=== PATIENT | male | born 1985 | race Caucasian/White ===

== ENCOUNTER 2018-02-20 15:07 | Emergency (ER) | payer OTHER ==
[~2018-02-20] VITALS: Ht 180.3 cm; Wt 113.6 kg
[~2018-02-20 15:07] MED LIST: CYCL-1 PO
[2018-02-20] MEDS ORDERED: ondansetron 4mg rapidly disintigrating tab PO ONE (15:25)
[2018-02-20] MEDS ORDERED: HYDROcodone/acetaminophen 10/325mg tab PO ONE (15:25)
[2018-02-20] MEDS ORDERED: LIDOcaine 1% 30ml preserv. free vial IJ ONE (15:40)
[2018-02-20] MEDS ORDERED: tetanus & diphtheria toxoid (Td) vaccine 0.5ml IMVAC ONE (17:15)
[2018-02-20] MEDS ORDERED: CEPH-572 PO (17:20)
[2018-02-20] MEDS ORDERED: HYDR-4383 PO (17:20)
[2018-02-20] MEDS ORDERED: HYDROcodone/acetaminophen 5mg/325mg tablet PO ONE (17:30)
[2018-02-20] MEDS ORDERED: TETanus/Pertussis (Acell)/Diphther VAC/PF (Tdap-Adult) 0.5ml syringe IM ONE (17:30)
== END 2018-02-20 18:26 | disposition home or self-care (01) ==
LOC: ER 15:08
DX: S61.212A Laceration without foreign body of right middle finger without damage to nail, initial encounter (principal); F12.90 Cannabis use, unspecified, uncomplicated; W23.0XXA Caught, crushed, jammed, or pinched between moving objects, initial encounter; Y93.89 Activity, other specified; Y92.69 Other specified industrial and construction area as the place of occurrence of the external cause; Y99.9 Unspecified external cause status
CPT/HCPCS: 12001; 73140; 90471; 90715; 99284; J3490

== ENCOUNTER 2018-02-23 08:57 | Emergency (ER) | payer OTHER ==
[~2018-02-23] VITALS: Ht 180.3 cm; Wt 100.0 kg
[~2018-02-23 08:57] MED LIST changes: +CEPH-572 PO; +HYDR-4383 PO
[2018-02-23 09:03] VITALS: BP 130/79
== END 2018-02-23 09:34 | disposition home or self-care (01) ==
LOC: ER 08:58
DX: S61.214D Laceration without foreign body of right ring finger without damage to nail, subsequent encounter (principal); F12.90 Cannabis use, unspecified, uncomplicated; W23.0XXD Caught, crushed, jammed, or pinched between moving objects, subsequent encounter
CPT/HCPCS: 99283

== ENCOUNTER 2020-04-30 03:53 | Emergency (ER) | payer MEDICAID, OTHER ==
[~2020-04-30] VITALS: Ht 180.3 cm; Wt 109.1 kg
[~2020-04-30 03:53] MED LIST changes: -CEPH-572 PO; -CYCL-1 PO; -HYDR-4383 PO; +LEVE250T4 PO
[2020-04-30] MEDS ORDERED: levetiracetam-NS 1000mg/100ml 100 ML IV ONE (04:15)
[2020-04-30] MEDS ORDERED: normal saline 1000ml 1,000 ML IV ONE (04:15)
[2020-04-30] MEDS ORDERED: levetiracetam inj 1,000 MG in normal saline 100ml IV soln 90 ML IV ONE (04:15)
[2020-04-30 04:28] LABS: BASOPHILS % (AUTO) 0.6 % (0-1); EOSINOPHILS # (AUTO) 0.2 X10'3 (0-0.9); EOSINOPHILS % (AUTO) 2.3 % (0-6); HEMATOCRIT 44.1 % (42.0-52.0); HEMOGLOBIN 15.1 g/dl (14.0-17.9); LYMPHOCYTES # (AUTO) 3.4 X10'3 (1.1-4.8); LYMPHOCYTES % (AUTO) 42.8 % (21-51); MEAN CORPUSCULAR HEMOGLOBIN 30.3 PG (27.0-31.0); MEAN CORPUSCULAR HGB CONC 34.2 g/dL (33.0-36.5); MEAN CORPUSCULAR VOLUME 88.5 FL (78-98); MEAN PLATELET VOLUME 7.5 FL (7.4-10.4); MONOCYTES # (AUTO) 0.5 X10'3 (0-0.9); MONOCYTES % (AUTO) 6.9 % (2-12); NEUTROPHILS # (AUTO) 3.8 X10'3 (1.8-7.7); NEUTROPHILS % (AUTO) 47.4 % (42-75); PLATELET COUNT 262 X10'3 (140-440); RED BLOOD COUNT 4.98 X10'6 (4.70-6.10); RED CELL DISTRIBUTION WIDTH 12.9 % (11.5-14.5)
[2020-04-30 04:41] LABS: ALANINE AMINOTRANSFERASE 47 U/L (12-78); ALBUMIN/GLOBULIN RATIO 1.1 (1.1-1.5); ALKALINE PHOSPHATASE 54 IU/L (46-116); ANION GAP 12 (8-16); ASPARTATE AMINO TRANSFERASE 29 U/L (10-37); BILIRUBIN,TOTAL 1.2 MG/DL (0.1-1.0); BLOOD UREA NITROGEN 11 MG/DL (7-18); BUN/CREATININE RATIO 11.6 (5.4-32.0); CHLORIDE 105 MMOL/L (99-107); CREATININE 0.95 MG/DL (0.60-1.10); ETHANOL < 0.010 GM/DL (0.0-0.010); GLUCOSE 151 MG/DL (70-104); MAGNESIUM 1.9 MG/DL (1.5-2.4); POTASSIUM 3.8 MMOL/L (3.5-5.1); SODIUM 139 MMOL/L (135-145); TOTAL CARBON DIOXIDE 22.1 MMOL/L (24-32); TOTAL PROTEIN 7.5 G/DL (6.4-8.2); eGFR > 90 ML/MIN
[2020-04-30 05:19] VITALS: BP 122/77
== END 2020-04-30 05:21 | disposition home or self-care (01) ==
LOC: ER 03:53
DX: R56.9 Unspecified convulsions (principal); F12.90 Cannabis use, unspecified, uncomplicated; F14.90 Cocaine use, unspecified, uncomplicated; Z86.69 Personal history of other diseases of the nervous system and sense organs; Z72.89 Other problems related to lifestyle; Z79.899 Other long term (current) drug therapy
CPT/HCPCS: 36415; 80053; 80320; 83735; 85025; 96365; 99284; J1953; J7030

== ENCOUNTER 2020-08-22 22:33 | Emergency (ER) | payer OTHER ==
[~2020-08-22] VITALS: Ht 172.7 cm; Wt 109.0 kg
--- NOTE | 2020-08-22 22:49 | NUR ---
drank 30 white claws. fell off [facility], unknown if LOC. c collar in place. denies any pain at this time.
--- NOTE | 2020-08-23 01:45 | NUR ---
road test, pt ambulates well. steady gait.
[2020-08-23 01:52] VITALS: BP 145/81
== END 2020-08-23 02:22 | disposition home or self-care (01) ==
LOC: ER 22:34
DX: F10.920 Alcohol use, unspecified with intoxication, uncomplicated (principal); F12.10 Cannabis abuse, uncomplicated; F14.10 Cocaine abuse, uncomplicated; W19.XXXA Unspecified fall, initial encounter; Y93.89 Activity, other specified; Y92.89 Other specified places as the place of occurrence of the external cause; Y99.8 Other external cause status; Y90.9 Presence of alcohol in blood, level not specified
CPT/HCPCS: 70450; 72125; 99285

== ENCOUNTER 2021-02-21 09:40 | Emergency (ER) | payer MEDICAID, OTHER ==
[~2021-02-21] VITALS: Ht 177.8 cm; Wt 98.0 kg
[~2021-02-21 09:40] MED LIST changes: +KEP500T PO; -LEVE250T4 PO; +MULT-25 PO; +folic acid tablet PO; +thiamine tablet PO
[2021-02-21] MEDS ORDERED: normal saline 1000ML IV soln IVB ONE (09:55)
[2021-02-21] MEDS ORDERED: levetiracetam inj 500 MG in normal saline 100ml IV soln 95 ML IV SCH (09:57)
[2021-02-21] MEDS ORDERED: LEVETIRACETAM IV SCH (10:02)
[2021-02-21] MEDS ORDERED: WATER IV SCH (10:02)
[2021-02-21] MEDS ORDERED: DEXTROSE 5% IV SCH (10:02)
[2021-02-21 10:30] LABS: RED BLOOD COUNT 5.07 X10'6 (4.70-6.10)
[2021-02-21 10:33] LABS: BASOPHILS % (AUTO) 0.2 % (0-1); EOSINOPHILS % (AUTO) 0 % (0-6); HEMATOCRIT 45.2 % (42.0-52.0); LYMPHOCYTES # (AUTO) 2.3 X10'3 (1.1-4.8); LYMPHOCYTES % (AUTO) 13.3 % (21-51); MEAN CORPUSCULAR HEMOGLOBIN 31.5 PG (27.0-31.0); MEAN CORPUSCULAR HGB CONC 35.3 g/dL (33.0-36.5); MEAN CORPUSCULAR VOLUME 89.1 FL (78-98); MEAN PLATELET VOLUME 7.9 FL (7.4-10.4); MONOCYTES # (AUTO) 0.6 X10'3 (0-0.9); MONOCYTES % (AUTO) 3.4 % (2-12); NEUTROPHILS # (AUTO) 14.3 X10'3 (1.8-7.7); NEUTROPHILS % (AUTO) 83.1 % (42-75); PLATELET COUNT 291 X10'3 (140-440); RED CELL DISTRIBUTION WIDTH 13.1 % (11.5-14.5); WHITE BLOOD COUNT 17.2 X10'3 (4.5-11.0)
[2021-02-21 10:43] LABS: ALANINE AMINOTRANSFERASE 54 U/L (12-78); ALBUMIN 4.2 G/DL (3.4-5.0); ALBUMIN/GLOBULIN RATIO 1.2 (1.1-1.5); ALKALINE PHOSPHATASE 56 IU/L (46-116); ANION GAP 13 (8-16); ASPARTATE AMINO TRANSFERASE 29 U/L (10-37); BLOOD UREA NITROGEN 12 MG/DL (7-18); BUN/CREATININE RATIO 11.9 (5.4-32.0); CALCIUM 8.7 MG/DL (8.5-10.1); CHLORIDE 103 MMOL/L (99-107); CREATININE 1.01 MG/DL (0.60-1.10); ETHANOL < 0.010 GM/DL (0.0-0.010); GLUCOSE 222 MG/DL (70-104); POTASSIUM 3.5 MMOL/L (3.5-5.1); SODIUM 137 MMOL/L (135-145); TOTAL CARBON DIOXIDE 21.4 MMOL/L (24-32); TOTAL PROTEIN 7.8 G/DL (6.4-8.2); eGFR 85 ML/MIN
[2021-02-21 11:41] VITALS: BP 141/87
[2021-02-21] MEDS ORDERED: KEP500T PO (11:56)
== END 2021-02-21 12:16 | disposition home or self-care (01) ==
LOC: ER 09:41
DX: S00.532A Contusion of oral cavity, initial encounter (principal); G40.909 Epilepsy, unspecified, not intractable, without status epilepticus; Z79.899 Other long term (current) drug therapy; X58.XXXA Exposure to other specified factors, initial encounter; Y93.89 Activity, other specified; Y92.89 Other specified places as the place of occurrence of the external cause; Y99.8 Other external cause status
CPT/HCPCS: 36415; 80053; 80320; 85025; 85610; 93005; 96365; 99284; J1953; J7030; J7060; 96366; 96374; 96375